=== PATIENT | female | born 1965 | race Caucasian/White ===

== ENCOUNTER 2016-07-02 06:50 | Inpatient (IN) ==
[2016-06-25 18:48] LABS: Basophils # (Auto) 0 K/mcL (0.0-0.3); Basophils % (Auto) 0.4 % (0.0-2.0); Eosinophils # (Auto) 0.2 K/mcL (0.0-0.7); Eosinophils % (Auto) 2.5 % (0.0-7.0); Granulocytes % (Auto) 66.6 % (38.0-78.0); Lymphocytes # (Auto) 2.1 K/mcL (1.5-4.8); Lymphocytes % (Auto) 24.9 % (15.5-49.0); Mean Cell Volume 89.5 fL (80.0-100.0); Mean Corpuscular Hemoglobin 29.5 pg (26.0-34.0); Monocytes # (Auto) 0.5 K/mcL (0.1-0.9); Monocytes % (Auto) 5.6 % (1.0-9.0); Platelet Count 252 K/mcL (140-440); RBC 4.98 M/mcL (4.00-5.20)
[2016-06-25 19:24] LABS: Blood Urea Nitrogen 13 mg/dl (6-20)
[2016-06-25 19:33] LABS: Appearance,Urine CLEAR; Bilirubin,Urine NEG (NEG); Color,Urine STRAW; Glucose,Urine (UA) NEGATIVE (NEG); Leukocyte Esterase,Urine NEG /uL (NEG); Nitrate,Urine NEG (NEG); Protein,Urine NEG (NEG); Specific Gravity,Urine 1.006 (1.000-1.035); Urine Blood NEG mg/dL (<0.03); Urobilinogen,Urine NEG (NEG)
[~2016-07-02 06:50] MED LIST: KETOROLAC 30 MG, ROPIVACAINE HCL/PF 49.5 ML, EPINEPHrine 0.5 MG, 0.9 % SODIUM CHLORIDE ... IJ SCH; PREGABALIN 150 MG CAPSULE PO SCH; ceFAZolin 1 GM VIAL IV SCH
[2016-07-02] MEDS ORDERED: HYDROcodone/APAP 5/325MG TABLET PO ONE (08:22)
[2016-07-02] MEDS ORDERED: SCOPOLAMINE 1 PATCH PATCH TOPICAL ONE (09:00)
[2016-07-02] MEDS ORDERED: KETOROLAC 30 MG/ML VIAL IV ONE (09:10)
[2016-07-02] MEDS ORDERED: ROPIVACAINE HCL/PF 30 ML VIAL IJ ONE (09:55)
[2016-07-02] MEDS ORDERED: PROPOFOL 200 MG/20 ML VIAL IV ONE (09:55)
[2016-07-02] MEDS ORDERED: TRANEXAMIC ACID 1,000 MG/10 ML VIAL IV ONE ×2 (09:55→11:24)
[2016-07-02] MEDS ORDERED: LIDOCAINE HCL/PF 100 MG/5 ML SYRINGE IV ONE (09:55)
[2016-07-02] MEDS ORDERED: ONDANSETRON 4 MG/2 ML VIAL IV ONE (09:55)
[2016-07-02] MEDS ORDERED: MIDAZOLAM 5 MG/5 ML VIAL IV ONE (09:55)
[2016-07-02] MEDS ORDERED: DEXAMETHASONE 10 MG/ML VIAL IV ONE (09:55)
[2016-07-02] MEDS ORDERED: FLUMAZENIL 0.1 MG/ML ML IV PRN (11:07)
[2016-07-02] MEDS ORDERED: LACTATED RINGERS 250 ML IV PRN (11:07)
[2016-07-02] MEDS ORDERED: diphenhydrAMINE 50 MG/ML VIAL IV PRN (11:07)
[2016-07-02] MEDS ORDERED: ONDANSETRON 4 MG/2 ML VIAL IV PRN ×2 (11:07→11:24)
[2016-07-02] MEDS ORDERED: MEPERIDINE 25 MG/ML SYRINGE IV PRN (11:07)
[2016-07-02] MEDS ORDERED: BENZOCAINE/MENTHOL 1 LOZENGE PO PRN ×2 (11:07→11:24)
[2016-07-02] MEDS ORDERED: METHOCARBAMOL 1,000 MG/10 ML VIAL IV PRN (11:07)
[2016-07-02] MEDS ORDERED: IPRATROPIUM/ALBUTEROL 3 ML AMPUL.NEB NEB PRN (11:07)
[2016-07-02] MEDS ORDERED: NALOXONE HCL 0.4 MG/ML VIAL IV PRN (11:07)
[2016-07-02] MEDS ORDERED: fentaNYL 100 MCG/2 ML VIAL IV PRN (11:07)
[2016-07-02] MEDS ORDERED: PROMETHAZINE 25 MG/ML VIAL IV PRN (11:07)
[2016-07-02] MEDS ORDERED: LACTATED RINGERS 1,000 ML IV SCH (11:15)
[2016-07-02] MEDS ORDERED: POLYETHYLENE GLYCOL 3350 17 GM PACKET PO PRN (11:24)
[2016-07-02] MEDS ORDERED: BISACODYL 10 MG SUPP.RECT PR PRN (11:24)
[2016-07-02] MEDS ORDERED: HYDROmorphone 2 MG/ML SYRINGE IV PRN (11:24)
[2016-07-02] MEDS ORDERED: FLEETS ADULT ENEMA PR PRN (11:24)
[2016-07-02] MEDS ORDERED: PROMETHAZINE 25 MG/ML VIAL IM PRN (11:24)
[2016-07-02] MEDS ORDERED: MAGNESIUM HYDROXIDE 30 ML ORAL.SUSP PO PRN (11:24)
[2016-07-02] MEDS ORDERED: ALPRAZolam 0.25 MG TABLET PO PRN (11:29)
[2016-07-02] MEDS ORDERED: ZOLMITRIPTAN 2.5 MG PO PRN (11:29)
[2016-07-02] MEDS ORDERED: CLOBETASOL PROPIONATE TOPICAL PRN (11:29)
--- NOTE | 2016-07-02 11:33 | Brief Operative Note ---
Date of procedure: 07/02/16 Pre-op diagnosis: R knee severe DJD Post-op diagnosis: same Procedure: R TKA Grafts/Implants: Yes (Major CR 4 femur, 4 tibia, 9 insert, 33 patella) Anesthesia: spinal, GLMA Findings: above Complications: none Surgeon: Tim Bolanos Industrial Engineering Analyst: Sam Lua Estimated blood loss (cc): 30 Specimens Removed/Pathology: none sent Condition: stable Disposition: PACU
--- NOTE | 2016-07-02 12:02 | XRay Report ---
HISTORY: Reason for Exam:Post-op total knee. FINDINGS: There is a well positioned total knee prosthesis. There is no fracture or abnormal soft tissue calcification. IMPRESSION: Well-positioned right knee prosthesis Interpreted and Authenticated by: Carlo Burks 07/02/16
[2016-07-02] MEDS: HYDROmorphone 2 MG/ML SYRINGE IV PRN ×4 (12:10→12:27)
[2016-07-02] MEDS: KETOROLAC 30 MG/ML VIAL IV SCH ×2 (12:30→17:42)
--- NOTE | 2016-07-02 15:48 | Operative Note ---
DATE OF OPERATION: 07/02/2016 PREOPERATIVE DIAGNOSIS: Right knee severe degenerative joint disease. POSTOPERATIVE DIAGNOSIS: Right knee severe degenerative joint disease. PROCEDURE PERFORMED: Right total knee arthroplasty using a [place] [employer] size 4 cruciate retaining femoral component, size 4 tibial baseplate, 9 mm X3 tibial insert with a 33 mm patellar button. SURGEON: Tim Bolanos MD. TEACHING MUSIC LESSONS: Bethel Lua PA-C. ANESTHESIA: Spinal plus general. DRAINS: None. SPECIMENS: Bone cuts which were discarded. BLOOD LOSS: 30 mL. COMPLICATIONS: None. POSTOPERATIVE CONDITION: Stable. INDICATIONS FOR SURGERY: This is a 50-year-old female who has had longstanding worsening right knee pain. She has had prior arthroscopy which showed full-thickness cartilage loss. She did not respond well to steroid injections and viscosupplementation injections. FINDINGS AT SURGERY: She did have full-thickness cartilage loss off of the trochlear groove, patella and lateral femoral condyle. Post implantation showed good overall limb alignment, joint stability and patellar tracking. PROCEDURE IN DETAIL: The patient had been seen preoperatively. Informed consent had been obtained after discussion of risks and benefits of surgery. Risks including, but not limited to, bleeding, possibly requiring transfusion; infection, possibly requiring implant removal and prolonged IV antibiotics; injury to nerves, blood vessels, and other surrounding structures; anesthetic risks; incomplete or no resolution of symptoms; stiffness; swelling; pain; clunking; DVT and pulmonary embolus risks; and the possibility of needing further surgery. She understood and wished to proceed. Correct operative site was marked and then the patient was given spinal anesthesia. She was then taken to the operating room and LMA general given. Right lower extremity was carefully prepped and draped in normal sterile fashion, and a time-out was performed verifying patient name, operative site, and plan. Esmarch was used to exsanguinate the extremity and tourniquet was inflated. A midline incision was made with a scalpel through skin and subcutaneous tissue and then a medial parapatellar arthrotomy made. Subperiosteal exposure was done on the anterior medial tibia and the distal anterior cortex of the femur. Fat pad was excised, and the anterior horns of the menisci were excised. ACL was transected. A drill hole was made in the femur and then the flexible IM cooper was passed up the femoral canal. A 5 degree valgus cut angle with an 8 mm resection depth was pinned into place with the flexed cooper held posterior. We then pinned our block in place and made our distal femoral cut. This barely skived the lateral femoral condyle, so we went ahead and resected two more millimeters moving the block back to the next holes. This made a much better distal cut. We went ahead and marked our [place]'s line epicondylar axis. She required 5 degrees of external rotation to match her anatomy. She seemed to be a 5. However, her previous knee was a 4. We went ahead and pinned the size [address] and made our anterior cut. We did feel we could cut two more off and so went ahead and downsized to a size 4 block which was pinned into place. We made our anterior cut. This was absolutely flush with the femur, so we went ahead and made our posterior and chamfer cuts. We then subluxed the tibia forward and removed the posterior horn of the menisci. A drill hole was made in the ACL footprint and then an IM cooper was passed. We stylused two off the medial side with 3 degree posterior slope cut block in place. We pinned this and made our tibial cut. This did indeed remove two off the medial side, and it was under articular cartilage on both compartments so we went ahead and sized this to a size 4. This was externally rotated as bone coverage would allow and pinned into place. We prepared the tibia with the boss reamer and keel punch and then a keeled tibial trial was placed. Femur was elevated and posterior osteophytes were removed with a curved osteotome and curet. We then impacted the femoral size 4 trial, placing this flush with the lateral cortex and pinned this into place. We drilled our peg holes. We then trialed a 9 insert, which was snug but able to be inserted adequately. We then took the knee into extension. The patella was cut freehand removing 9 mm of bone. We sized this to a 33, which we medialized maximally and drilled our holes. A minimal lateral facetectomy was performed with an oscillating saw. We then checked our patellar tracking which was excellent. There was no tilt or subluxation or pressure required to hold it to track. We went ahead and removed our trial implants. Definitive implants were opened except for the tibial insert. We irrigated with Irrisept. After a minute we pulse lavaged while antibiotic cement was mixed. We then sprayed the cut bone surface with CO2 to clean and dry the cancellous bone and then cemented the tibia followed by the femur. Excess cement was removed. A 9 trial insert was placed. The knee was taken into full extension, and the patella was cemented. We irrigated again with Irrisept and leaving this in the joint we went ahead and injected our pain cocktail into the pericapsular tissues and subcutaneous tissues. We then suctioned out the Irrisept and pulse lavaged with saline. After cement had fully hardened, we flexed the knee up and did a visual inspection for any remaining cement and removed it. We did go ahead and try an 11 insert which we were unable to get in place, so we went ahead and opened a 9. The remainder of the pain cocktail was injected in the posterior, medial and lateral capsule, and then the definitive insert was impacted after another Irrisept irrigation. The knee was placed over a bump, and then interrupted #2 FiberWire was used around the superior medial corner of the patella repair and then #1 Vicryl for the remainder, [id number] on the inferior medial half. Running #1 Vicryl was used for patellar tendon and quad tendon. Final Irrisept was irrigated and then saline and then 2-0 Monocryl for subcutaneous and winsome for skin. Xeroform sterile dressings were applied. Tourniquet was released. The patient was awakened, extubated, and transferred to recovery in stable condition. [email or web address]:[id number] Job ID: [id number] Doc ID: [id number] Tim Bolanos MD
[2016-07-02] MEDS: VERAPAMIL HCL 80 MG TABLET PO SCH ×2 (15:54→21:17)
[2016-07-02] MEDS: 0.9 % SODIUM CHLORIDE 10 ML SYRINGE IV SCH (15:54)
[2016-07-02] MEDS: LACTATED RINGERS 1,000 ML IV SCH ×2 (15:54→22:41)
[2016-07-02] MEDS: ceFAZolin 1 GM VIAL IV SCH (17:42)
[2016-07-02] MEDS: oxyCODONE HCL 5 MG TABLET PO PRN ×2 (17:43→21:06)
[2016-07-02] MEDS ORDERED: SENNOSIDES 1 TABLET PO SCH (21:00)
[2016-07-02] MEDS: DOCUSATE SODIUM 100 MG CAPSULE PO SCH (21:06)
[2016-07-02] MEDS: ASPIRIN 325 MG ENTERIC COATED TABLET PO SCH (21:06)
[2016-07-03] MEDS: KETOROLAC 30 MG/ML VIAL IV SCH ×2 (00:37→05:55)
[2016-07-03] MEDS: 0.9 % SODIUM CHLORIDE 10 ML SYRINGE IV SCH ×2 (00:38→06:01)
[2016-07-03] MEDS: ceFAZolin 1 GM VIAL IV SCH (01:58)
[2016-07-03] MEDS: oxyCODONE HCL 5 MG TABLET PO PRN ×3 (02:00→10:32)
[2016-07-03] MEDS: VERAPAMIL HCL 80 MG TABLET PO SCH (07:21)
[2016-07-03] MEDS ORDERED: LEVOTHYROXINE 25 MCG TABLET PO SCH (07:30)
[2016-07-03] MEDS ORDERED: PANTOPRAZOLE 40 MG TABLET PO SCH (07:30)
--- NOTE | 2016-07-03 08:00 | Discharge Summary ---
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 Chief Complaint: mild pain discussed discharge plan with pt. Pt has OTC ASA at home. will take ASA 325mg bid x 30 days Discharge date: 07/03/16 Hospitalization Hospital course: Pt was admitted for a TKA. She underwent the procedure the day of admission and was transferred to the floor for IV pain meds, iv abx and PT. She was discharged on post-op day 1. Discharge diagnosis: R knee osteoarthosis Exam - Exam Clean and dry: Yes Weight bearing status: as tolerated Ortho Discharge - TKA - Patient Instructions Diet: Regular Diet Activity: activity as tolerated Total Knee Protocol: For Total Knee: Start ROM TED with stationary bike or rocking chair. Work on gaining full extension of knee. Posterior dislocation precautions provided. Hip abductor strengthening and gait training instructions provided. Apply Cryocuff as instructed. Dressing Care: May shower in 2 days - Follow Up Plan Disposition: Home, Self-Care Prognosis: Good Rehab Potential: Good Overall status at discharge: patient is progressing back to baseline - Orders For Discharge Prescriptions: Promethazine [Phenergan] 12.5 mg PO Q4-6HP PRN #60 tablet PRN Reason: Nausea And Vomiting oxyCODONE HCL [Roxicodone] 1 - 2 tab PO Q4HP PRN #90 tablet PRN Reason: Pain Pending Studies Resuscitation Status Full Code Diet Regular Diet Start ThuJul 02 Lunch Aspirin (Ecotrin) 325 mg PO BID [facility] Last Admin: 07/02/16 21:06 Dose: 325 mg Docusate Sodium (Colace) 100 mg PO BID [facility] Last Admin: 07/02/16 21:06 Dose: 100 mg Hydromorphone HCl (Dilaudid) 0 mg IV Q2HP PRN PRN Reason: Pain Last Admin: 07/03/16 03:20 Dose: 0.5 mg Lactated Ringer's (Lactated Ringers) 1,000 mls @ 100 mls/hr IV .Q10H [facility] Last Admin: 07/02/16 22:41 Dose: Admin: 07/02/16 15:54 Dose: Not Given Ketorolac Tromethamine (Toradol) 30 mg IV Q6 [facility] Stop: 07/04/16 06:01 Last Admin: 07/03/16 05:55 Dose: 30 mg Admin: 07/03/16 00:37 Dose: 30 mg Admin: 07/02/16 17:42 Dose: 30 mg Admin: 07/02/16 12:30 Dose: Levothyroxine Sodium (Synthroid) 25 mcg PO ACB [facility] Last Admin: 07/03/16 07:18 Dose: 25 mcg Oxycodone HCl (Roxicodone) 0 mg PO Q4HP PRN PRN Reason: Pain Last Admin: 07/03/16 05:55 Dose: 10 mg Admin: 07/03/16 02:00 Dose: 10 mg Admin: 07/02/16 21:06 Dose: 10 mg Admin: 07/02/16 17:43 Dose: 5 mg Pantoprazole Sodium (Protonix) 40 mg PO QAMAC [facility] Last Admin: 07/03/16 07:18 Dose: 40 mg Senna (Senokot) 2 tab PO HS [facility] Last Admin: 07/02/16 21:06 Dose: 2 tab Sodium Chloride (Saline Flush) 10 ml IV Q8 [facility] Last Admin: 07/03/16 06:01 Dose: 10 ml Admin: 07/03/16 00:38 Dose: 10 ml Admin: 07/02/16 15:54 Dose: Not Given Verapamil HCl (Calan) 120 mg PO TID [facility] Last Admin: 07/03/16 07:21 Dose: 120 mg Admin: 07/02/16 21:17 Dose: 120 mg Admin: 07/02/16 15:54 Dose: 120 mg Shift Summary 07/03/16 03:29 Shift Summary by Marisa Shi Pt A&O, up with SBA, FWW to BR, voiding adequate amounts. Drsg to knee CDI. CMS intact. IV to right hand SL. Medicated with 2 Roxicodone. Gave 0.5mg IV Dilaudid x1 for breakthrough pain. Makes needs known, very pleasant and cooperative. Initialized on 07/03/16 03:29 - END OF NOTE
[2016-07-03] MEDS: ASPIRIN 325 MG ENTERIC COATED TABLET PO SCH (08:17)
[2016-07-03] MEDS: DOCUSATE SODIUM 100 MG CAPSULE PO SCH (08:17)
== END 2016-07-03 10:45 | disposition home or self-care (01) | DRG 470 ==
LOC: MEDSUR 06:50
PROVIDERS: ADMIT Orthopaedic Surgery; ATTEND Orthopaedic Surgery